=== PATIENT | male | born 1970 | race Caucasian/White ===

== ENCOUNTER 2019-01-13 14:29 | Observation (INO) | payer BC ==
[~2019-01-13 14:29] MED LIST: Iopamidol-370 76% 500 ML 1 ML ONE
[2019-01-13 14:49] LABS: #Basophils 0.1 thou/uL (0.0-0.2); #Eosinphils 0.2 thou/uL (0.0-0.7); #Lymphocytes 2.5 thou/uL (1.20-3.40); #Monocytes 1.1 thou/uL (0.11-0.59); #Neutrophils 14.2 thou/uL (1.40-6.50); %Basophils 0.5 % (0.0-1.0); %Eosinophils 1.4 % (0.0-10.0); %Lymphocytes 13.8 % (21.0-51.0); %Monocytes 5.8 % (0.0-10.0); %Neutrophils 78.6 % (42.0-75.0); Hemoglobin 16.6 g/dL (14.0-18.0); Mean Corpuscular HGB CONC 34.2 g/dL (32.0-36.0); Mean Corpuscular Hemoglobin 31.5 pg (27.0-31.0); Mean Corpuscular Volume 92.2 fL (78.0-98.0); Mean Platelet Volume 6.4 fL (7.4-10.4); Platelet Count 417 thou/uL (130-400); RBC Distribution Width 12.6 % (11.5-14.5); Red Blood Cell (RBC) Count 5.27 mill/uL (4.70-6.10); White Blood Cell (WBC) Count 18.1 thou/uL (4.8-10.8)
--- NOTE | 2019-01-13 14:52 | RAD ---
XR Chest 1 View Portable HISTORY: Trauma, chest pain COMPARISON: None FINDINGS: The heart size is normal. The lungs are well expanded without focal areas of consolidation, pneumoth orax or large pleural effusions. There is mild pulmonary vascular congestion.
[2019-01-13 14:57] LABS: PTT 27.6 SEC (22.9-36.1); Prothrombin Time 13.2 SEC (12.0-14.7)
[2019-01-13] MEDS ORDERED: Fentanyl 100 MCG/2 ML VIAL ONE (14:57)
--- NOTE | 2019-01-13 15:08 | CT ---
CT Brain WO Con: 01/13/2019 2:43 PM CLINICAL HISTORY: Level 2 trauma;: Tach. IMAGING TECHNIQUE: Multiple CT images were obtained of the brain without IV contrast. COMPARISON: None. FINDINGS: Brain: No acute infarct or hemorrhage is evident. No midline shift. Ventricles: Normal. No hydrocephalus.. Skull: Intact.. Visualized Paranasal sinuses: There is mucosal thickening within air-fluid level within the maxillary sinuses. There is mucosal thickening within the ethmoid air cells and right frontal sinus. There is postsurgical change of prior sinus surgery.. Mastoid air cells:Clear. Extracranial soft tissues:There is a right frontal scalp contusion IMPRESSION: No acute intracranial abnormality. Findings suspicious for acute sinusitis of the maxillary sinuses. No visible sinus fracture is grossl y evident. Findings were called to Dr. Schofield at 3:00 PM on January 13, 2019.
[2019-01-13 15:11] LABS: ALT (SGPT) 158 U/L (8-55); AST (SGOT) 148 U/L (5-34); Albumin 4.6 g/dL (3.5-5.0); Alkaline Phosphatase 107 U/L (40-110); Anion Gap 16 mmol/L (10-20); BUN (Urea Nitrogen) 15 mg/dL (8.9-20.6); Bilirubin, Total 0.5 mg/dL (0.2-1.2); Calc. Creatinine Clearance 0 mL/min (70-130); Calcium 9.9 mg/dL (7.8-10.44); Carbon Dioxide 20 mmol/L (22-29); Chloride 109 mmol/L (98-107); Estimated GFR-MDRD 58; Globulin 3.4 g/dL (2.4-3.5); Glucose 139 mg/dL (70-105); Potassium 4.5 mmol/L (3.5-5.1); Sodium 140 mmol/L (136-145)
--- NOTE | 2019-01-13 15:11 | CT ---
CT Cervical Spine WO Con Indication: Level 2 trauma; bull injury with neck pain COMPARISON: None. FINDINGS: Fracture: None. Spinal alignment: No acute malalignment. Craniocervical junction: Within normal limits. Vertebral body heights: Maintained. Cervical spine degenerative change: None of significance. Lung apices: Clear. IMPRESSION: No acute osseous abnormality. Findings were called to Dr. Schofield at 3:00 PM on January 13, 2019.
[2019-01-13] MEDS ORDERED: Ondansetron ODT 8 MG TAB ONE (15:21)
[2019-01-13] MEDS ORDERED: Ondansetron PF 4 MG/2 ML Vial ONE ×2 (15:22)
--- NOTE | 2019-01-13 15:30 | CT ---
CT CHEST WITH IV CONTRAST: CT ABDOMEN WITH IV CONTRAST: CT PELVIS WITH IV CONTRAST: HISTORY: Level II trauma. Chest pain, back pain and abdominal pain. FINDINGS: No evidence of mediastinal hematoma or intimal flap in the aorta is seen to suggest transection. No p ericardial or left pleural effusions are seen. There is a small right pleural effusion and bibasilar infiltrates. There are multiple right sided rib fractures (3 through 12). No free air or free fluid is seen in the abdomen or pelvis. The liver, spleen, pancreas, adrenal glan ds and kidneys are intact. The gallbladder and the urinary bladder also appear intact. No fracture or subluxation is seen in the thoracolumbar spine. IMPRESSION: 1. Multiple right sided rib fractures with small right pleural effusions and probable adjacent pulmon barby contusions. 2. No CT evidence of solid organ injury. POS: [facility]
[2019-01-13] MEDS ORDERED: traMADol HCl 50 MG TAB ONE (16:47)
[2019-01-13] MEDS ORDERED: Morphine 4 MG/ML VIAL ONE (16:48)
[2019-01-13] MEDS ORDERED: Ketorolac Tromethamine 30 MG/ML VIAL ONE (16:48)
[2019-01-13] MEDS ORDERED: Dextrose 50% Abboject 50 ML SYRINGE SLOW IVP PRN (16:58)
[2019-01-13] MEDS ORDERED: Ondansetron PF 4 MG/2 ML Vial IVP PRN (16:58)
[2019-01-13] MEDS ORDERED: Ondansetron ODT 4 MG TAB PO PRN (16:58)
[2019-01-13] MEDS ORDERED: Morphine 4 MG/ML VIAL SLOW IVP PRN (16:58)
[2019-01-13] MEDS ORDERED: hydrALAZINE 20 MG/ML VIAL SLOW IVP PRN (16:58)
[2019-01-13] MEDS ORDERED: Dextrose 5% in Water 1,000 ML IV PRN (16:58)
[2019-01-13] MEDS ORDERED: Sodium Chloride 0.9% 1,000 ML IV SCH (17:00)
[2019-01-13] MEDS ORDERED: Cyclobenzaprine 10 MG TAB PO PRN (17:02)
[2019-01-13] MEDS ORDERED: Cyclobenzaprine 10 MG TAB ONE (17:15)
[2019-01-13] MEDS ORDERED: Gabapentin 300 MG CAP PO SCH (17:15)
[2019-01-13] MEDS ORDERED: Lidocaine 1% w/Epinephrine 1:100K 20 ML VIAL ONE (17:33)
[2019-01-13 17:35] LABS: Bacteria/HPF None Seen HPF (None Seen); Bilirubin Negative (Negative); Blood, Urine 2+ (Negative); Clarity Clear (Clear); Glucose, Urine (Dipstick) Normal (Negative); Leukocyte Negative Leu/uL (Negative); Nitrite Negative (Negative); Protein, Urine (Dipstick) 20 mg/dL (Neg-Trace); Squamous Epithelial None Seen HPF (0-3); Urobilinogen Normal mg/dL (Less than 2); WBC/HPF 0-3 HPF (0-3)
[2019-01-13] MEDS ORDERED: Bacitracin 1 PK ONE (17:57)
--- NOTE | 2019-01-13 18:30 | HP ---
This is Miroslava Alonso NP dictating a report for Dr. Cross. REQUESTING PHYSICIAN: Dr. Schofield. HISTORY OF PRESENT ILLNESS: This was a level 1 trauma activation. This is a 48-year-old gentleman who was attempting to move a bull of his [id number]'s risk management consultant into another risk management consultant when he was charged and bent up against a metal panel fence. The patient was able to climb over the fence and get away from the bull after about 30 seconds. The patient denies any loss of consciousness and remembers the entire event. The patient was transported by [facility]. The patient was given 100 mcg of fentanyl by EMS. The patient was noted to have right lower breath sounds absent and a needle decompression was placed. Emergency room physician felt that the decompression was not through the pleural space and removed the decompression needle. The patient was never hypotensive. The patient reports severe pain to right side of chest, no shortness of breath, no nausea or vomiting. Laceration to right side of forehead and abrasions to the abdomen. REVIEW OF SYSTEMS: A 10-point review of systems is negative unless otherwise indicated in the above HPI. PAST MEDICAL HISTORY: Denies. FAMILY HISTORY: Denies. PAST SURGICAL HISTORY: Sinus surgery only. MEDICATIONS: None. ALLERGIES: NO KNOWN DRUG ALLERGIES. SOCIAL HISTORY: Very rare alcohol use. Denies any illicit drug use. Denies smoking history. PHYSICAL EXAMINATION: VITAL SIGNS: Temperature 98.4, pulse 98, blood pressure 150/88, respirations 20, SpO2 of 95% on room air. GENERAL: A middle-age gentleman, well-appearing, obvious distress due to moderate amount of right rib pain. HEENT: Hematoma and small laceration to the right forehead, no active bleeding. Facial bruising to forehead, mucous membranes intact, midface stable. Ear exam normal. Airway patent. NECK: Normal range of motion. Trachea midline. No tenderness to palpation or step-off to cervical spine. RESPIRATORY: Equal chest rise and fall. The patient has not taken full deep breaths due to rib pain, abrasions and contusions to the right lower chest. Also abrasions to left chest and right upper abdomen. Equal breath sounds bilateral. No respiratory distress. No wheezing, rales, or rhonchi. CARDIOVASCULAR: Regular rate, regular rhythm. No murmurs. GI: Abdomen is soft, nontender, nondistended, no peritoneal signs, no rigidity, no guarding, no rebound. Positive abrasions and contusions to right side of upper abdomen. EXTREMITIES: Contusion to left upper arm and shoulder, full range of motion in all extremities, good motor strength in all extremities. Sensation intact in all extremities, distal pulses in place intact. PELVIS: Stable. NEUROLOGICAL: No focal deficits. The patient oriented to person, place, time, and event. GCS 15. LABORATORY DATA: WBC 18.1, RBC 5.27, hemoglobin 16.6, hematocrit 48.6, platelets 417. PT 13.2, INR 1.0. Sodium 140, potassium 4.5, chloride 109, BUN 15, creatinine 1.30, estimated GFR 58, glucose 139, AST 148, ALT 158, alkaline phosphatase 107. Urinalysis, urine specific gravity greater than 1.060, small ketones. CK pending. DIAGNOSTIC DATA: Chest x-ray; impression, heart size normal, lungs are well expanded without focal areas of consolidation. No pneumothorax or large pleural effusion. There is mild pulmonary vascular congestion. Brain CT; impression, no acute intracranial abnormality. Findings suspicious for acute sinusitis of the maxillary sinuses. No visual fracture. Cervical spine CT; impression, no acute osseous abnormalities. Chest abdomen and pelvis CT; impression, multiple right-sided rib fractures with small right pleural effusions and probable adjacent pulmonary contusions. ASSESSMENT: 1. Status post charged by bull and bent against fence. 2. Multiple right-sided rib fractures, 3 through 12. 3. Right small pleural effusion with pulmonary contusion. 4. Acute traumatic pain. 5. Right forehead laceration, repaired in the ER. 6. Multiple abrasions and contusions. PLAN: We will place the patient on surgical floor in observation status. We will place the patient on a rib fracture protocol with aggressive pulmonary toilet. We will optimize pain management. We will encourage the patient to ambulate frequently. Once the patient's pain is well controlled, the patient should be able to be discharged home. We will place the patient on a regular diet and start maintenance IV fluids as the patient seems to be slightly dehydrated. The plan will be discussed with the attending after this dictation. The plan was discussed with the patient who agrees. Job ID: [id number]
[2019-01-13] MEDS: Acetaminophen 500 MG TAB PO SCH ×2 (19:26→23:09)
[2019-01-13] MEDS: Senokot S 8.6-50 MG TAB PO SCH (20:20)
[2019-01-13] MEDS: Gabapentin 300 MG CAP PO SCH (20:20)
[2019-01-13] MEDS ORDERED: traMADol HCl 50 MG TAB PO SCH (21:00)
[2019-01-13 22:40] VITALS: BMI 35.4
[2019-01-13] MEDS: traMADol HCl 50 MG TAB PO SCH (23:09)
--- NOTE | 2019-01-14 00:23 | PRG ---
DATE OF SERVICE: 01/13/2019 SUBJECTIVE: The patient was seen this evening, lying in bed with no signs of acute distress. He was admitted today after he was pinned by a bull and crushed between a bull and a fence. The patient reported pain is much better controlled now after starting rib fracture protocol. He is able to take deep breaths. Continues to work with the incentive spirometer. OBJECTIVE: VITAL SIGNS: Temperature 98.8, pulse 109, respirations 16, oxygen saturation 92% on room air, blood pressure 114/71. GENERAL: Well-appearing, middle-aged male, lying in bed with no signs of acute distress. PULMONARY: Equal chest rise and fall. No signs of acute respiratory distress. CARDIAC: Tachycardic, but regular rhythm. GI: Abdomen is soft, nontender, nondistended. EXTREMITIES: 2+ pulses in all extremities. Gross motor and sensation intact. No significant swelling noted. NEUROLOGIC: GCS is 15. ASSESSMENT: 1. Status post crushed by bull. 2. Right ribs 3 through 12 fracture. 3. Right lower lobe pulmonary contusion with effusion. 4. Right forehead laceration, status post repair. 5. Acute traumatic pain, improved. PLAN: Continue current diet and pain regimen. The patient will receive a chest x-ray tomorrow as well as repeat blood work. We will discontinue IV fluids as the patient is taking in good amount of fluids. Continue regular diet. If the patient's pain control continues to be good tomorrow and he continues to do well with incentive spirometer, he can be discharged home. Job ID: [id number]
[2019-01-14] MEDS: Ibuprofen 800 MG TAB PO SCH ×2 (01:20→08:34)
[2019-01-14] MEDS: traMADol HCl 50 MG TAB PO SCH (05:03)
[2019-01-14] MEDS: Acetaminophen 500 MG TAB PO SCH (05:03)
[2019-01-14 06:36] LABS: Anion Gap 12 mmol/L (10-20); BUN (Urea Nitrogen) 17 mg/dL (8.9-20.6); Calc. Creatinine Clearance 133 mL/min (70-130); Calcium 8.5 mg/dL (7.8-10.44); Carbon Dioxide 23 mmol/L (22-29); Chloride 107 mmol/L (98-107); Estimated GFR-MDRD 70; Glucose 110 mg/dL (70-105); Magnesium 2.2 mg/dL (1.6-2.6); Phosphorus 3.5 mg/dL (2.3-4.7); Potassium 3.7 mmol/L (3.5-5.1); Sodium 138 mmol/L (136-145)
--- NOTE | 2019-01-14 07:50 | RAD ---
EXAM: Single view of the chest HISTORY: Right rib fractures COMPARISON: 01/13/2019 FINDINGS: Single view of the chest shows a normal sized cardiomediastinal silhouette. There is no justice dence of consolidation, mass, or pleural effusion. No pneumothorax is seen. IMPRESSION: No evidence of acute cardiopulmonary disease
[2019-01-14 08:32] LABS: #Eosinphils 0.2 thou/uL (0.0-0.7); #Lymphocytes 1.7 thou/uL (1.20-3.40); #Neutrophils 8.9 thou/uL (1.40-6.50); %Basophils 0.3 % (0.0-1.0); %Eosinophils 1.9 % (0.0-10.0); %Lymphocytes 14.1 % (21.0-51.0); %Monocytes 8.6 % (0.0-10.0); %Neutrophils 75.1 % (42.0-75.0); Hemoglobin 13.1 g/dL (14.0-18.0); Mean Corpuscular HGB CONC 33.9 g/dL (32.0-36.0); Mean Corpuscular Hemoglobin 31.5 pg (27.0-31.0); Mean Corpuscular Volume 92.9 fL (78.0-98.0); Mean Platelet Volume 6.5 fL (7.4-10.4); Platelet Count 286 thou/uL (130-400); RBC Distribution Width 12.5 % (11.5-14.5); Red Blood Cell (RBC) Count 4.16 mill/uL (4.70-6.10); White Blood Cell (WBC) Count 11.8 thou/uL (4.8-10.8)
[2019-01-14] MEDS: Senokot S 8.6-50 MG TAB PO SCH (08:34)
[2019-01-14] MEDS: Gabapentin 300 MG CAP PO SCH (08:35)
[2019-01-14] MEDS ORDERED: Polyethylene Glycol 3350 17 GM Packet PO SCH (09:00)
[2019-01-14 11:12] VITALS: BP 117/73; TEMP 98.6
--- NOTE | 2019-01-14 12:26 | PDOC.GSPN ---
Surgery Progress Note: Subj - Subjective Narrative: The patient was seen last night after his admission to the floor. His pain was much better since receiving pain medications and he was breathing easier. His breath sounds were clear bilaterally. With the exception of the laceration on his head and the pain in his right chest his examination was unremarkable except for some bruising and a laceration on his left lower calf. He had no pain in the ankle and was walking on the leg without difficulty. Today he is doing better and will likely be discharged home on oral pain medications and incentive spirometry. He can follow up in the trauma surgery clinic. Surgery Progress Note: Obj - Vital signs Vital signs: Vital Signs - Most Recent Temp Pulse Resp BP Pulse Ox 98.6 F 81 20 117/73 92 L 01/14/19 11:10 01/14/19 11:10 01/14/19 11:10 01/14/19 11:10 01/14/19 11:10 Surgery Progress Note: Results - Labs Result Diagrams: 01/14/19 05:44 01/14/19 05:44 Lab results: Laboratory Results - last 24 hr 01/14/19 01/14/19 05:44 05:44 WBC 11.8 H RBC 4.16 L Hgb 13.1 L Hct 38.7 L MCV 92.9 MCH 31.5 H MCHC 33.9 RDW 12.5 Plt Count 286 MPV 6.5 L Neutrophils % 75.1 H Lymphocytes % 14.1 L Monocytes % 8.6 Eosinophils % 1.9 Basophils % 0.3 Neutrophils # 8.9 H Lymphocytes # 1.7 Monocytes # 1.0 H Eosinophils # 0.2 Basophils # 0.0 Sodium 138 Potassium 3.7 Chloride 107 Carbon Dioxide 23 Anion Gap 12 BUN 17 Creatinine 1.11 Estimated GFR (MDRD) 70 Glucose 110 H Calcium 8.5 Phosphorus 3.5 Magnesium 2.2
--- NOTE | 2019-01-14 18:35 | DIS ---
DATE OF ADMISSION: 01/13/2019 DATE OF DISCHARGE: 01/14/2019 This is Miroslava Alonso NP dictating a report for Padma Cross MD. ADMITTING ATTENDING: Padma Cross MD DISCHARGE ATTENDING: Padma Cross MD. CONSULTS: None. PROCEDURES: 1. On 01/13/2019, chest x-ray, impression, heart size normal, lungs are well expanded without focal areas of consolidation. No pneumothorax. No large pleural effusion. There is mild pulmonary vascular congestion. 2. On 01/13/2019, brain CT; impression, no acute intracranial abnormality. 3. Cervical spine CT; impression, no acute osseous abnormalities. 4. On 01/13/2019, chest, abdomen, and pelvis CT, impression; multiple right-sided rib fractures 3 through 12 with right small pleural effusions and probable adjacent pulmonary contusions. 5. On 01/14/2019, chest x-ray, impression, no evidence of consolidation, mass, or pleural effusion. No pneumothorax is seen. PRIMARY DIAGNOSES: 1. Status post charged by bull and crushed against fence. 2. Multiple right-sided rib fractures 3 through 12, right small pleural effusion with pulmonary contusion, right forehead laceration repaired in the ER, multiple abrasions and contusions. DISCHARGE MEDICATIONS: 1. Flexeril 10 mg p.o. 3 times a day as needed, #3 p.r.n. muscle spasm. 2. Gabapentin 300 mg p.o. 3 times a day as needed, #60. 3. Tramadol 50 mg 1 to 2 tablets q.6 hours as needed for pain, #30. 4. Tylenol 1000 mg p.o. q.6 hours. 5. Ibuprofen 800 mg p.o. q.8 hours as needed for pain. 6. There were no discontinued medications. HISTORY OF PRESENT ILLNESS AND HOSPITAL COURSE: This was a level 1 trauma activation, a 48-year-old gentleman who was attempting to move a bull off his [id number]'s director strategy into another director strategy when he was charged by a bull and crushed against metal panel fence. The patient was able to climb over the fence and get away from the bull after about 30 seconds. The patient denies any loss of consciousness and remembers the entire event. The patient was evaluated in the emergency room and found to have multiple right-sided rib fractures requiring observation and pain management. The patient's vital signs were stable during his hospital stay and the patient's pain was well managed. The patient was able to tolerate a diet and ambulate frequently. The patient was able to use his incentive spirometer reaching 2000 mL. On the day of discharge, the patient had no complaints and reports that his pain was well controlled. The patient's vital signs were stable on the day of discharge and physical exam was unremarkable including cardiopulmonary and GI exam. The patient was deemed stable for discharge home. DISPOSITION: Stable. DISCHARGE INSTRUCTIONS: 1. Location: Home. 2. Diet: Regular diet. 3. Activity: As tolerated. 4. Followup: Follow up with primary care physician in 7 days for forehead suture removals. If unable to get in with your primary physician, you may call the Trauma Clinic and set up an appointment for suture removal. The patient will need a followup chest x-ray in 2 weeks and follow up with Trauma Clinic. Please call for an appointment. This is just a summary of the patient's hospital course. Job ID: [id number]
== END 2019-01-14 12:00 | disposition home or self-care (01) ==
LOC: ERS 14:29 → SURG A 18:25
PROVIDERS: ADMIT Surgery; ATTEND Surgery
DX: S22.41XA Multiple fractures of ribs, right side, initial encounter for closed fracture (principal); S27.321A Contusion of lung, unilateral, initial encounter; S01.81XA Laceration without foreign body of other part of head, initial encounter; J90 Pleural effusion, not elsewhere classified; W55.29XA Other contact with cow, initial encounter; Y93.K9 Activity, other involving animal care
CPT/HCPCS: 12001; 36415; 70450; 71045; 71260; 72125; 74177; 80048; 80053; 81003; 81015; 82550; 83735; 84100; 85025; 85610; 85730; 86850; 86900; 86901; 93005; 94760; 96361; 96365; 96375; 96376; 99292; G0378; G0390; J0690; J1885; J2270; J2405; J3010; Q9967